=== PATIENT | male | born 1985 | race Caucasian/White ===

== ENCOUNTER 2016-03-07 20:24 | Emergency (ER) | payer OTHER ==
[~2016-03-07] VITALS: Ht 180.3 cm; Wt 99.1 kg
[~2016-03-07 20:24] MED LIST: ATV/1 SL; MECL25TA2 PO
[2016-03-07 20:31] VITALS: TEMP 36.8; Ht 180.3 cm; Wt 99.1 kg
[2016-03-07] MEDS ORDERED: MECLIZINE HCL 25 MG TAB PO STA (21:01)
[2016-03-07] MEDS ORDERED: LORAZEPAM 1 MG TAB SL STA (21:01)
[2016-03-07] MEDS ORDERED: LISI10TA PO (21:26)
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
[2016-03-07] MEDS ORDERED: ATV/1 SL (22:02)
[2016-03-07] MEDS ORDERED: MECL1TAB42 PO (22:02)
[2016-03-07 22:12] VITALS: BP 131/76; PULSE 75; O2SAT 96
== END 2016-03-07 22:13 | disposition home or self-care (01) ==
LOC: C.EDB 20:26 → C.EDA 22:13
DX: R42 Dizziness and giddiness (principal); R11.10 Vomiting, unspecified; Z87.828 Personal history of other (healed) physical injury and trauma

== ENCOUNTER → 2016-10-19 | Outpatient (CLI) | payer OTHER ==
[~2016-10-19] MED LIST changes: -ATV/1 SL; +LISI10TA PO; -MECL25TA2 PO
--- NOTE | 2016-10-19 16:00 | DIAGNOSTIC IMAGING REPORT ---
CHEST 2 VIEWS ROUTINE CLINICAL HISTORY: 30 years-old Male presenting with COUGH X 1 MO,R/O PNEUMONIA *STAT. TECHNIQUE: PA and lateral views of the chest were obtained. COMPARISON: None. FINDINGS: Cardiomediastinal silhouette normal. Lungs and pleural spaces clear. Osseous structures normal. Upper abdomen normal. IMPRESSION: 1. No acute cardiopulmonary disease. Electronically signed by: Finesse Diego M.D. 10/19/2016 3:58 PM Dictated Date/Time: 10/19/2016 3:58 PM
== END | disposition home or self-care (01) ==
LOC: C.RAD 15:43
PROVIDERS: ATTEND Physician Assistant Surgical
DX: R05 Cough (principal)